=== PATIENT | male | born 1955 | race Caucasian/White ===

== ENCOUNTER → 2023-10-15 12:26 | Outpatient (REF) | payer OTHER, SELFPAY | LOC: HWRAD 12:26 | PROVIDERS: ATTENDING PHYSICIAN Podiatrist Foot & Ankle Surgery; FAMILY PHYSICIAN Family Medicine | DX: M10.9 Gout, unspecified (principal) | CPT/HCPCS: 73630 ==

== ENCOUNTER → 2023-11-06 19:52 | Outpatient (REF) | payer OTHER, SELFPAY | LOC: MRI 3T 19:52 | PROVIDERS: ATTENDING PHYSICIAN Urology; FAMILY PHYSICIAN Family Medicine | DX: R97.20 Elevated prostate specific antigen [PSA] (principal) | CPT/HCPCS: 72197; A9575 ==

== ENCOUNTER 2023-12-08 13:11 | Inpatient (IN) | payer OTHER, SELFPAY ==
[2023-12-08] VITALS (16 sets, daily range): BP systolic 121–160; BP diastolic 67–96; PULSE 70–90; BMI 32.0; BMI 31.8
--- NOTE | 2023-12-08 09:31 | ED.GENMED ---
History of Present Illness
General
Chief Complaint: Abnormal Lab Value
Source: patient
Time Seen by Provider: 12/08/23 09:18
History of Present Illness
History of Present Illness:
68-year-old male presents to the emergency room after receiving a call from his doctor that his hemoglobin was low. Patient had blood work performed by his primary because he was feeling fatigued, short of breath with exertion and had a couple
syncopal episodes after immunizations recently. Patient denies any black or bloody stool. He has not had any other sites of bleeding that he can recall. He does endorse shortness of breath with exertion. No fever or chills.
Past History
Past History
ED Past Medical History: HTN
ED Past Surgical History: Other (hernia repair)
Social History
Tobacco: Non-smoker
Personal:
Living: with family
Employment: Employed
Phy Exam
Physical Exam
Physical Exam:
General: Awake, Alert, Oriented X3. No acute distress.
Vitals: unremarkable
Head: Atraumatic
Eyes: Pupils equal, EOMI, pale sclera
Throat: Airway intact, no exudates
Neck: Trachea midline
Lungs: Clear and equal b/l
Heart: Regular rate, no murmurs
Abd: Soft, Nontender, No pulsatile mass
Rectal: Trace heme positive brown stool
Neuro: Nonfocal
Skin: Warm, dry, no rash, pale complexion
Extremities: pulses equal b/l, no edema
Course
Orders/Labs/Results
Orders:
Orders
12/08/23 09:38
Type+Screen Urgent
B12 [Vitamin B12] Routine
Complete Blood Count/With Diff Urgent
Comprehensive Metabolic Panel Urgent
Ferritin Routine
Folate Routine
Iron Urgent
Comment: ADD ON
Lipase Urgent
Manual Differential Urgent
Total Iron Binding Urgent
Comment: ADD ON
12/08/23 09:56
ABO2 Urgent
BBK Wristband Number:
Associate notified that ABO2 has been ordered: [id number]
Date: 12/08/23
Time: 09:52
Flexible Shaft Winder ID: [id number]
12/08/23 Lunch
NPO
Allow oral meds: Yes
Allow clear liquids: Sips of Clears
12/08/23 10:07
Blood Bank Products [* Blood Bank Products] Urgent
Blood Bank Products: *Packed RBC Leuko(PRBC's)
Quantity: 2
Transfuse Today: Yes
Reason: Anemia
12/08/23 12:28
Pantoprazole [Protonix IV] 80 mg IV NOW STA
12/08/23 12:51
Admit/Transfer Patient As Directed
Co-Sign Provider:
Level of Care: Inpatient admission
Assign to:: Telemetry
Physician / Group: hemant
Diagnosis: anemia
Reason for Telemetry: Arrhythmia
Date to Stop Telemetry: 12/11/23
Time to Stop Telemetry: 11:00
Reason for Hospitalization: anemia
Expected length of stay greater than two midnights?: Yes
ELOS- Estimated Length of Stay in days: 2
I certify the patient meets the requirements for IP care: Yes
PRN Pain Medication Management As Directed
May give lesser potent ordered pain med per pt: Yes
preference::
Protocol:: Medication orders for pain may be administered in a
manner that supports deferring to patient preference
when the pt is:
- Requesting an ordered lesser potent pain medication.
Least to most potent pain medications are defined
as: acetaminophen < NSAID < tramadol < opioids
(morphine, oxycodone, hydromorphone).
- Requesting a lesser dose of the same medication IF
ORDERED.
- Requesting a less intrusive route of administration
if both routes are prescribed by the provider (PO <
IV).
12/08/23 12:52
Code Status As Directed
Resuscitation Status: Full Code
12/08/23 14:46
Alprazolam [Xanax] 0.5 mg PO BIDPRN PRN
12/08/23 14:46
GASTROINTESTINAL CONSULT Routine
Consulting Provider: Xochilt Marte
Was physician already notified: Yes
Activity As Directed
Activity Level: As Tolerated
Orthostatic Vital Signs As Directed
Orthostatic VS Frequency: Now
Comment: then every four hours for twenty-four hours
Pneumatic Compression Sleeves As Directed
Type: Knee high
Vital Signs As Directed
Frequency: Per unit guidelines
DX Deep Vein Thrombosis Video Routine
12/08/23 20:00
Pantoprazole [Protonix IV] 40 mg IV BID
12/08/23 22:00
Calcium 200mg(Ca. Carb. 500mg) [Tums Chewable Tablet] 200 mg PO HS
Cetirizine HCl [Zyrtec] 10 mg PO HS
12/09/23 06:00
Complete Blood Count/With Diff IN AM
Comprehensive Metabolic Panel IN AM
12/09/23 08:00
Allopurinol [Zyloprim] 300 mg PO DAILY
12/11/23 11:00
DC Protocol for Telemetry ONCE
Abnormal Lab Results
12/08/23
09:38
WBC 4.5 L 10^3/uL
(4.8-10.8)
RBC 2.86 L 10^6/uL
(4.70-6.10)
Hgb 5.0 L* g/dL
(13.0-18.0)
Hct 19.2 L* %
(39.0-52.0)
MCV 67.1 L fL
(80.0-94.0)
MCH 17.5 L pg
(27.0-31.0)
MCHC 26.0 L g/dL
(33.0-37.0)
RDW 19.7 H %
(11.5-14.5)
Plt Count 446 H 10^3/uL
(130-400)
Chloride 109 H mmol/L
(98-107)
BUN 24 H mg/dl
(9-20)
Glucose 112 H mg/dl
(70-99)
Iron 22 L ug/dl
(49-181)
TIBC 503 H ug/dl
(261-462)
% Saturation 4 L %
(20-50)
Ferritin 5.0 L ng/ml
(17.9-464.0)
AST 16 L U/L
(17-59)
Albumin 2.6 L g/dl
(3.5-5.0)
Crossmatch IS Only See Detail
12/08/23 09:38
12/08/23 09:38
Vital Signs
Initial and Last Documented VS:
Initial Vital Signs
Temp Pulse Resp BP Pulse Ox
98.1 F 92 16 128/71 98
12/08/23 09:13 12/08/23 09:13 12/08/23 09:13 12/08/23 09:13 12/08/23 09:13
Last Documented Vital Signs
Temp Pulse Resp BP Pulse Ox
97.6 F 73 20 127/74 99
12/08/23 14:04 12/08/23 14:04 12/08/23 14:04 12/08/23 14:04 12/08/23 14:04
MDM/Problems Addressed
Differential Diagnosis Includes:
anemia from bone marrow suppression, slow gi bleed, iron deficiency
MDM/Problems Addressed:
Patient presents with symptomatic anemia. Outpatient hemoglobin was in the fives. Hemoglobin here is 5.0. 2 units of blood ordered. Indices suggest microcytic anemia. Patient is trace heme positive so perhaps he has a slow GI bleed. Given his
history of lymphoma recurrence or other wall pathology possible. Patient will require hospitalization to further delineate the cause of his anemia and also to monitor response to transfusion.
*Pulse Oximetry
Patient hypoxic: no
*Critical Care Note
Total Time (30-74mins, 75-104mins- exclusive of procedures): Not Applicable
ED Attending Note
-
Portions of this chart may have been created with voice recognition software.� Occasional wrong word or��sound alike� substitutions may have occurred due to the inherent limitations of voice recognition software.
Discharge Plan
Departure
Patient Disposition: Admit
Date of Disposition: 12/08/23
Time of Disposition: 12:28
Admit to: Med/Surg
Presentation/result/management discussed w/ accepting MD/DO: Hospitalist
Condition: Fair
Discharge Problem:
Symptomatic anemia
Interventions
Interventions:
*Risk Screen - Suicide Last Done: 12/08/23 09:18
*General Assessment Last Done: 12/08/23 10:28
*Neglect/Abuse Screening Last Done: 12/08/23 09:18
ED- Fall Risk Assessment Last Done: 12/08/23 11:22
*Nursing Disposition Last Done: 12/08/23 14:38
Discharge Date and Time
Discharge Date/Time: 12/08/23 14:39
[2023-12-08 10:05] LABS: Hematocrit 19.2 % (39.0-52.0); Mean Corpuscular Hgb 17.5 pg (27.0-31.0); Mean Corpuscular Volume 67.1 fL (80.0-94.0); Mean Platelet Volume 9.1 fL (7.4-10.4); Platelet Count 446 10^3/uL (130-400); Red Blood Cell Count 2.86 10^6/uL (4.70-6.10); Red Cell Dist. Width 19.7 % (11.5-14.5); White Blood Cell Count 4.5 10^3/uL (4.8-10.8)
[2023-12-08 10:12] LABS: ALT (SGPT) 13 U/L (0-50); AST (SGOT) 16 U/L (17-59); Albumin 2.6 g/dl (3.5-5.0); Alkaline Phosphatase 85 U/L (38-126); Blood Urea Nitrogen 24 mg/dl (9-20); Calcium 9.4 mg/dl (8.4-10.2); Carbon Dioxide 22 mmol/L (22-30); Chloride 109 mmol/L (98-107); Estimated Creatinine Clearance 74 ml/min; Glucose 112 mg/dl (70-99); Lipase 114 U/L (23-300); Potassium 3.9 mmol/L (3.5-5.1); Sodium 144 mmol/L (135-145); Total Bilirubin 0.3 mg/dl (0.2-1.3); Total Protein 6.3 g/dl (6.3-8.2); eGFR > 60.00
[2023-12-08 10:15] LABS: Absolute Neutrophils -Man Diff 2.4 10^3/uL (1.4-6.5); Anisocytosis 1+; Band Neutrophils 0 % (0-3); Eosinophils 3 % (0-6); Hypochromasia 2+; Lymphocytes 36 % (20-51); Monocytes 6 % (2-9); Normal RBC Morphology No; Ovalocytes Slight; Platelets Checked Yes; Polychromasia 1+; Segmented Neutrophils 55 % (42-75)
[2023-12-08 10:16] LABS: Total Cells Counted 100
--- NOTE | 2023-12-08 12:54 | HPS.HSE ---
Family Physician
-
Family Physician: Michael Wright
Chief Complaint
-
sympatomatic anemia
History of Present Illness
68-year-old male past medical history of non-Hodgkin's lymphoma status post chemotherapy now in remission, anemia, elevated PSA, hypertension, gout, anxiety, neuropathy, vasovagal syncope, presenting to the emergency room after receiving a call from
his doctor that his hemoglobin was low. Patient had blood work performed because he was feeling fatigue, shortness of breath with exertion for the past few weeks. He recently got his flu shot and COVID shot a few days ago and had a syncopal
episode afterwards. Last week he also had a syncopal episode when his is getting an injection. He has had vasovagal syncopal episodes in the past.
Denies any blood in the stool or black stool. Denies any urinary bleeding. He denies any chest pain. He denies any abdominal pain. Denies nausea or vomiting.
He last had EGD and colonoscopy 2 years ago for anemia but no source of the bleeding could be found. He received iron infusion at that time.
Denies smoking or alcohol use.
Denies any family history of GI problems.
He is being followed by urology for elevated PSA and there is plan to undergo another prostate biopsy in the near future due to small prostate lesion.
Medical History
Past Medical History
Past Medical History: Reports Other (non-Hodgkin's lymphoma status post chemotherapy now in remission, anemia, elevated PSA, hypertension, gout, anxiety, neuropathy, vasovagal syncope)
Past Surgical History: Reports Other (Inguinal hernia repair, left ankle surgery,)
Social History
Tobacco: Non-smoker
Alcohol: None
Drug: None
Family History
Family History: Not pertinent
Allergies / Home Medications
Allergies reflects when Allergies were last updated in [facility] [employer].
Home Medications with original date entered in [facility]
Allergy/Medication List:
Allergies
Allergy/AdvReac Type Severity Reaction Status Date / Time
Penicillins Allergy Severe Hives Verified 04/14/16 22:57
Sulfa (Sulfonamide Allergy Severe Rash Verified 04/14/16 22:57
Antibiotics)
Home Medications
allopurinol 300 mg tablet 300 mg PO DAILY 12/08/23
alprazolam 0.5 mg tablet (Xanax) 0.5 mg PO BIDPRN PRN anxiety 12/08/23
calcium carbonate (Tums) 200 mg PO HS 12/08/23
cetirizine 10 mg tablet (Zyrtec) 10 mg PO HS 12/08/23
gabapentin 600 mg tablet 600 mg PO BID 12/08/23
lisinopril 40 mg tablet 40 mg PO QPM 12/08/23
lovastatin 10 mg tablet 10 mg PO QPM 12/08/23
naproxen 500 mg tablet (Naprosyn) 500 mg PO BIDPRN PRN gout flares 12/08/23
turmeric 400 mg capsule 1,000 mg PO HS 12/08/23
Review of Systems
-
History Source: Patient
A 12 point ROS was completed and negative except as noted: Yes
Constitutional: Reports No Symptoms
EENT: Reports No Symptoms
Respiratory: Reports No Symptoms
Cardiac: Reports No Symptoms
Abdomen/GI: Reports No Symptoms
: Reports No Symptoms
Musculoskeletal: Reports No Symptoms
Skin: Reports No Symptoms
Neurological: Reports No Symptoms
Endocrine: Reports No Symptoms
Hematologic/Lymphatic: Reports No Symptoms
Psych: Reports No Symptoms
Physical Exam
Vital Signs
Vital Signs
Temp Pulse Resp BP Pulse Ox
97.6 F 76 20 132/90 100
12/08/23 11:29 12/08/23 11:29 12/08/23 11:29 12/08/23 11:29 12/08/23 11:45
Physical Exam
General: Well Developed, Well Nourished and No Apparent Distress
HEENT: NormoCephalic, Moist mucous membranes and Atraumatic
Respiratory: Clear
Cardiac: S1/S2 and Regular Rhythm; No Murmur or Rub
GI: Soft, Non Tender, Non Distended and Normal Bowel Sounds; No Organomegaly
Rectal: Deferred by Provider
Musculoskeletal: No Clubbing, No Cyanosis and No Edema
Skin: No Rash
Neuro: Nonfocal/grossly intact
Laboratory Results
-
12/08/23 09:38
12/08/23 09:38
Laboratory Results
Total Bilirubin 0.3 mg/dl (0.2-1.3) 12/08/23 09:38
AST 16 U/L (17-59) L 12/08/23 09:38
ALT 13 U/L (0-50) 12/08/23 09:38
Alkaline Phosphatase 85 U/L (38-126) 12/08/23 09:38
Lipase 114 U/L (23-300) 12/08/23 09:38
Data Reviewed
-
Lab Data: Labs Reviewed by me
Old Records: Reviewed
Impression/Plan
-
IMPRESSION:
PLAN:
# Acute symptomatic microcytic anemia likely due to occult GI blood loss
#Recent vasovagal syncopal episodes exacerbated by anemia
-Hemoccult showed trace heme positive brown stool
-Hemoglobin of 5
-2 units of blood transfusion
-N.p.o.
-Protonix 40 IV twice daily
-Check iron studies, B12 and folate
-Hold naproxen
-GI consulted
Non-Hodgkin's lymphoma status post chemotherapy
-Now in remission
BPH/prostate lesion
-Being followed by urology, plan for biopsy in near future
Essential hypertension
-Hold lisinopril
Gout
-Continue allopurinol
Anxiety
-Continue Xanax
Hyperlipidemia
-Continue statin
Neuropathy
-continue gabapentin
Full code
DVT prophylaxis�SCDs
N.p.o.
[2023-12-08] MEDS: PROTONIX IV 80 MG IV (14:07)
[2023-12-08 14:19] LABS: Iron 22 ug/dl (49-181)
[2023-12-08 14:28] LABS: Percent Saturation 4 % (20-50); Total Iron Binding Capacity 503 ug/dl (261-462)
--- NOTE | 2023-12-08 15:20 | CON.GI ---
Addendum entered and electronically signed by Xochilt Marte DO 12/08/23 16:38:
Patient seen and examined independently of the [employer]. I agree with her note with my additions below
I discussed with the patient and his who is a nurse at the bedside who gives a lot of his history. He is a 60-year-old male with history of non-Hodgkin's lymphoma in remission s/p chemotherapy in 2018.
2 years ago patient had iron deficiency anemia and underwent an endoscopy, colonoscopy and capsule endoscopy with Dr. Barba. states these were all subjectively normal except he had a very large hiatal hernia and some small polyps. Otherwise
states the capsule was somewhat inconclusive because of a lot of debris.
He does have significant reflux but is on an [id number] PPI. He states on rare occasion he feels like liquids do not go down very well. He denies any nausea or vomiting. No chronic abdominal pain diarrhea constipation or overt bleeding.
He takes naproxen for gout on rare occasion but no anticoagulation. Does drink on the weekends more on the heavy side. He is a non-smoker with no pulmonary disease.
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 He has only received 1 IV iron. He has never received a blood transfusion.
On Friday he went to his PCP for his biannual visit and had blood work including a CBC which showed a hemoglobin of 5 that was microcytic.
He normally does not come to [place] but came here because of the urgency of his PCP
# Symptomatic iron deficiency anemia with shortness of breath/dyspnea on exertion and fatigue
-- Hemoglobin 5 with a ferritin of 5 with last known hemoglobin 12 according to 's portal
-- Had iron deficiency anemia with a GI workup 2 years ago at [facility]. We are obtaining these results. According to the and the patient only findings were very large hiatal hernia which Dr. Barba thought the iron deficiency was secondary to
the hiatal hernia. The patient did want to proceed with surgical repair but after their conversation with GI they decided not to.
-This will be his first transfusion and just received his second unit of blood.
-- We will proceed with EGD tomorrow and hold off on colonoscopy since it was just done within 2 years and he has a significant hiatal hernia which could be the cause
--Clears for dinner, n.p.o. after midnight, PPI twice daily, hold NSAIDs, IV iron
-- Patient has an appointment with his continuous wave operator within the next 2 weeks and can be set up for IV iron outpatient
-- Pending results, patient is not opposed to having his hiatal hernia repaired
He will follow-up with Dr. Barba outpatient--
Original Note:
Consultation
-
Date/Time Consultation Requested: 12/08/23- 1400
Date/Time Consultation Performed: 12/08/23 1520
Requesting Provider: James Awad MD
Performing Provider: ADRIANO Nielsen, Xochilt Marte DO
Reason for Consultation: anemia
Medical History
Chief Complaint / HPI
Chief Complaint: abnormal labs syncope
History of Present Illness:
Pt is a 68yo with hx history of non-Hodgkin's lymphoma status post chemotherapy in 2018 now in remission, anemia with prior iron infusions, elevated PSA, hypertension, gout, anxiety, neuropathy, vasovagal syncope with admission for low hbg in ER at
5noted with trace heme + stools. Iron studies c/w iron deficiency and B12 deficiency. In reviewing with patient he had work up with Dr. Barba about 2 years ago with EGD/colonoscopy and capsule. He did recall polyps but no other findings. He did
have some iron infusion with his continuous wave operator after that time for low iron. He now presents with abnormal labs with hbg 5 after PCP visit. Last hbg about 1 year ago noted 13. He does admit to shortness of breath worsening over several weeks and
episode of syncope last week while at PCP office. He was noted trace heme + in ER but denies any visible blood. He admits to occasional GERD with Tums use. He denies dysphagia,abdominal pain, diarrhea or constipation. No anticoagulation use but
does take Naproxen for gout and recent colchicine course several weeks ago. + ETOH use on weekends with several beers and shots.
Past Medical History
Past Medical History: Cancer (non hodgkin's lymphoma s/p chemo in remission, anemia, elevated PSA), HTN and Other (gout, anxiety, neuropathy, vasovagel syncope, colon polyps)
Past Surgical History: Other (inguinal hernia repair, left ankle surgery )
Social History
Tobacco: Non-Smoker
Alcohol: Occasional (Weekends- several beers and shots )
Drug: None
Personal:
Living: With Family
Employment: Retired
Family History
Family History: Reviewed & Not Pertinent
Allergies / Home Medications
Allergy/AdvReac Type Severity Reaction Status Date / Time
Penicillins Allergy Severe Hives Verified 04/14/16 22:57
Sulfa (Sulfonamide Allergy Severe Rash Verified 04/14/16 22:57
Antibiotics)
�Medication �Instructions �Recorded
allopurinol 300 mg tablet 300 mg PO DAILY 12/08/23
alprazolam 0.5 mg tablet (Xanax) 0.5 mg PO BIDPRN PRN anxiety 12/08/23
calcium carbonate (Tums) 200 mg PO HS 12/08/23
cetirizine 10 mg tablet (Zyrtec) 10 mg PO HS 12/08/23
gabapentin 600 mg tablet 600 mg PO BID 12/08/23
lisinopril 40 mg tablet 40 mg PO QPM 12/08/23
lovastatin 10 mg tablet 10 mg PO QPM 12/08/23
naproxen 500 mg tablet (Naprosyn) 500 mg PO BIDPRN PRN gout flares 12/08/23
turmeric 400 mg capsule 1,000 mg PO HS 12/08/23
Review of Systems
-
History Source: Patient and Family
Constitutional: Reports No Symptoms
EENT: Reports No Symptoms
Respiratory: Reports Trouble Breathing
Cardiac: Reports Syncope (last week )
Abdomen/GI: Reports Other (occasional GERD)
: Reports No Symptoms
Musculoskeletal: Reports Other
Neurological: Reports Dizzy and Weakness
Endocrine: Reports No Symptoms
Hematologic/Lymphatic: Reports No Symptoms
Vital Signs
Temp Pulse Resp BP Pulse Ox
97.5 F 73 18 127/74 100
12/08/23 15:07 12/08/23 14:04 12/08/23 15:07 12/08/23 14:04 12/08/23 15:07
Physical Exam
Exam
General: Well Developed, Well Nourished and Other (pale appearing )
HEENT: Normocephalic and Anicteric
Respiratory: Clear
Cardiac: Regular Rhythm
GI: Soft, Non Tender and Non Distended
Musculoskeletal: No Clubbing and No Cyanosis
Skin: Warm and Dry
Neuro: Awake, Alert and AO x 3
Psych: Calm
Results
WBC 4.5 10^3/uL (4.8-10.8) L 12/08/23 09:38
Hgb 5.0 g/dL (13.0-18.0) L* 12/08/23 09:38
Hct 19.2 % (39.0-52.0) L* 12/08/23 09:38
MCV 67.1 fL (80.0-94.0) L 12/08/23 09:38
Plt Count 446 10^3/uL (130-400) H 12/08/23 09:38
Sodium 144 mmol/L (135-145) 12/08/23 09:38
Potassium 3.9 mmol/L (3.5-5.1) 12/08/23 09:38
Chloride 109 mmol/L (98-107) H 12/08/23 09:38
Carbon Dioxide 22 mmol/L (22-30) 12/08/23 09:38
BUN 24 mg/dl (9-20) H 12/08/23 09:38
Creatinine 1.1 mg/dL (0.7-1.3) 12/08/23 09:38
Calcium 9.4 mg/dl (8.4-10.2) 12/08/23 09:38
Total Bilirubin 0.3 mg/dl (0.2-1.3) 12/08/23 09:38
AST 16 U/L (17-59) L 12/08/23 09:38
ALT 13 U/L (0-50) 12/08/23 09:38
Alkaline Phosphatase 85 U/L (38-126) 12/08/23 09:38
Lipase 114 U/L (23-300) 12/08/23 09:38
Diagnostic Image Results:
Prior GI Procedures:
EGD: [address] Barba recalls as normal
Colonoscopy: 2 years ago recall polyps
capsule 2 years ago recalls as normal
Assessment / Plan
-
Pt is a 68yo with hx history of non-Hodgkin's lymphoma status post chemotherapy now in remission, anemia with prior iron infusion, elevated PSA, hypertension, gout, anxiety, neuropathy, vasovagal syncope with admission for low hbg in ER at 5 noted
with trace heme + stools. Iron studies c/w iron deficiency and also B12 deficiency. Per family last hbg 13 about 1 year ago. + ETOH use of weekends. + NSAID use for gout.
-symptomatic iron deficiency anemia with weakness, shortness of breath and syncope
-B12 deficiency
-hx prior ANGELIC with GI work up 2 years ago recall polyps did not recall any other findings
-non hodgkin's lymphoma in remission--
-gout with NSAID use
-ETOH use
other med problems:
-elevated PSA
-HTN
-anxiety
-neuropathy
PLAN:
Etiology of ANGELIC related to slow blood loss- PUD with hx NSAID use, ectasia, mass vs other
agree with transfusion s/p 1 unit and getting another unit now
add iron infusion to start tomorrow
cont trend hbg
hospitalist to add B12 supplementation
plan for EGD/colon in AM if neg then repeat capsule
cont PPI
NSAID/ ETOH avoidance
will try to obtain prior work up [address] Barba
Pt due follow up in about 2 weeks with OP hematology
updated
-
-
Thank you for consultation and allowing me to participate in the patient's care. Please call the environmental sampler GI physician during the after hours with any questions or concerns.
[2023-12-08 15:26] LABS: Folate 13.4 ng/ml (2.76-20); Vitamin B12 234 pg/ml (239-931)
[2023-12-08] MEDS: LIPITOR 10 MG PO (17:26)
--- NOTE | 2023-12-08 19:30 | PTCARENOTE ---
pt received 1 unit PRBCs that started at 1618. blood was stopped at 1924. VSS, pt AAOx3. plan of care ongoing
[2023-12-08] MEDS: NEURONTIN 600 MG PO (21:06)
[2023-12-08] MEDS: NSS (PRESERVATIVE FREE) 10 ML IV (21:07)
[2023-12-08] MEDS: PROTONIX IV 40 MG IV (21:07)
[2023-12-08] MEDS: ZYRTEC 10 MG PO (21:08)
[2023-12-08] MEDS: TUMS CHEWABLE TABLET 200 MG PO (21:08)
[2023-12-08] MEDS: XANAX 0.5 MG PO (22:02)
[2023-12-09] VITALS (10 sets, daily range): BP systolic 126–159; BP diastolic 57–93; PULSE 65–85
--- NOTE | 2023-12-09 03:36 | W.PN.UPDATE ---
Update Note
Progress Note Update
RN reports that during night Tele monitor showed HR to 150 for a few seconds. But this did wake up pt and he felt a bit SOB during this episode. HR back to 70s within a few seconds.
[2023-12-09 05:48] LABS: % Basophils 3.1 % (0-2); % Immature Granulocytes 0.4 % (0-0.5); % Lymphocytes 36.4 % (20.5-51.1); % Monocytes 9.7 % (1.7-9.3); % Neutrophils 43.4 % (42.2-75.2); Absolute Basophils 0.2 10^3/uL (0-0.2); Absolute Eosinophils 0.4 10^3/uL (0-0.7); Absolute Monocytes 0.5 10^3/uL (0.1-0.6); Absolute Neutrophils 2.4 10^3/uL (1.4-6.5); Hematocrit 23.1 % (39.0-52.0); Hemoglobin 6.8 g/dL (13.0-18.0); Mean Corp Hgb Conc. 29.4 g/dL (33.0-37.0); Mean Corpuscular Volume 71.3 fL (80.0-94.0); Mean Platelet Volume 8.9 fL (7.4-10.4); Nucleated Red Blood Cells % 0.5 % (-); Platelet Count 384 10^3/uL (130-400); Red Blood Cell Count 3.24 10^6/uL (4.70-6.10); Red Cell Dist. Width 22.6 % (11.5-14.5); White Blood Cell Count 5.6 10^3/uL (4.8-10.8)
[2023-12-09 05:55] LABS: INR 1.15; PT 14.5 Sec (11.4-14.6)
[2023-12-09 06:09] LABS: ALT (SGPT) 11 U/L (0-50); AST (SGOT) 16 U/L (17-59); Albumin 3.5 g/dl (3.5-5.0); Alkaline Phosphatase 80 U/L (38-126); Blood Urea Nitrogen 17 mg/dl (9-20); Carbon Dioxide 23 mmol/L (22-30); Chloride 108 mmol/L (98-107); Estimated Creatinine Clearance 74 ml/min; Glucose 90 mg/dl (70-99); Magnesium 1.9 mg/dl (1.6-2.3); Potassium 4.2 mmol/L (3.5-5.1); Sodium 142 mmol/L (135-145); Total Protein 5.8 g/dl (6.3-8.2); eGFR > 60.00
[2023-12-09] MEDS: ZYLOPRIM 300 MG PO (11:32)
[2023-12-09] MEDS: PROTONIX IV 40 MG IV (11:32)
[2023-12-09] MEDS: NSS (PRESERVATIVE FREE) 10 ML IV (11:32)
[2023-12-09] MEDS: NEURONTIN 600 MG PO (11:32)
--- NOTE | 2023-12-09 12:00 | W.PN.UPDATE ---
Update Note
Progress Note Update
d/w pt and post procedure will consider cscope
clear liquid for now
will update hospitalist
--- NOTE | 2023-12-09 12:01 | W.PN.HOSP.TC ---
Today's Communication/Plan
-
Await patient decision for C-scope
Await repeat H&H
Continue with iron and B12 supplementation
Assessment / Plan
Assessment / Plan
General: Well Developed, Well Nourished and No Apparent Distress
HEENT: NormoCephalic, Moist mucous membranes and Atraumatic
Respiratory: Clear
Cardiac: S1/S2 and Regular Rhythm; No Murmur or Rub
GI: Soft, Non Tender, Non Distended and Normal Bowel Sounds; No Organomegaly
Rectal: Deferred by Provider
Musculoskeletal: No Clubbing, No Cyanosis and No Edema
Skin: No Rash
Neuro: Nonfocal/grossly intact
# Acute symptomatic microcytic anemia likely due to occult GI blood loss
#Recent vasovagal syncopal episodes exacerbated by anemia
-Hemoccult showed trace heme positive brown stool
-Hemoglobin of 5 on admission. repeat Hgb pending
-3 units of blood transfusion so far
-Protonix 40 IV twice daily and switch to p.o. on discharge.
-Check iron studies, B12 and folate
-S/P EGD with unremarkable. Large paraesophageal hernia noted.
-GI offered colonoscopy and patient considering either here as outpatient.
-Hold naproxen. Continue with IV iron. Also started B12 supplementation. Diet per GI
-GI consulted
Non-Hodgkin's lymphoma status post chemotherapy
-Now in remission
BPH/prostate lesion
-Being followed by urology, plan for biopsy in near future
Essential hypertension
-Hold lisinopril
Gout
-Continue allopurinol
Anxiety
-Continue Xanax
Hyperlipidemia
-Continue statin
Neuropathy
-continue gabapentin
Full code
DVT prophylaxis�SCDs
Anticipated Discharge: Within 24 hours
Subjective/Interval History
-
Date of Service: December 09, 2023
Receiving blood
deneis abd pain
Objective Data
-
Labs:
Laboratory Results
12/09/23 12/09/23
05:10 12:00
WBC 5.6
Hgb 6.8 L* D Pending
Hct 23.1 L Pending
Plt Count 384
PT 14.5
INR 1.15
Sodium 142
Potassium 4.2
Chloride 108 H
Carbon Dioxide 23
BUN 17
Creatinine 1.1
Glucose 90
Calcium 9.0
Total Bilirubin 1.0
AST 16 L
ALT 11
Alkaline Phosphatase 80
Vital Signs:
Vital Signs
Temp Pulse Resp BP Pulse Ox
97.7 F 65 18 147/83 98
12/09/23 11:47 12/09/23 11:47 12/09/23 11:47 12/09/23 11:47 12/09/23 11:47
I&O
12/08/23 12/09/23 12/10/23
06:59 06:59 06:59
Intake Total 1760 / 1760 250 / 250
Balance 1760 / 1760 250 / 250
Data Reviewed
-
Total Time Spent with Patient (in minutes): 51
[2023-12-09 12:50] LABS: Hematocrit 27.1 % (39.0-52.0)
--- NOTE | 2023-12-09 14:14 | W.DCSUMMARY ---
Discharge Summary
Discharge Data
Date of Admission: 12/08/23
Date of Discharge: 12/09/23
-
Pending Results: Yes
Additional Pending Results:
EGD biopsy results with gastroenterology.
Hospital Course
68-year-old male past medical history of non-Hodgkin lymphoma status postchemotherapy, BPH, prostate lesion, hypertension, gout, anxiety, hyperlipidemia, neuropathy who was presented with symptomatic anemia. Patient had recent outpatient blood work
was found to hemoglobin of 5. Patient received 2 units of blood transfusion on admission. GI was consulted. Patient was started on PPI infusion. Patient was also found to have a low iron stores and B12. Received IV iron and discharged on p.o.
iron and B12 supplementation. Patient underwent endoscopy which showed EGD Erythematous mucosa in the stomach. Biopsied. Gastric erosion with no bleeding and no stigmata of recent bleeding. Biopsied. Large paraesophageal hernia was noted. Patient
hemoglobin improved to 8 status post 3 units of PRBC total. Patient stated he will follow-up for further workup including colonoscopy with his outpatient gastroenterology and did not want to undergo colonoscopy over here. Discussed with
gastroenterology okay for patient to be discharged as no further workup is desired by patient. PPI transition to p.o. twice daily.
Discharge Plan
-
Patient Disposition: Home (Routine Discharge)
Discharge Diagnosis/Procedures: Symptomatic anemia status post blood transfusion
S/P Endoscopy
Paraoesophageal hernia
Condition: Fair
Diet: As tolerated
Activity: With assistance and As tolerated
Blood Work: cbc in 3-5 days via primary doctor.
Activity Restrictions/Additional Instructions:
Recommend gi follow up with Dr. Barba for further evaluation.
Referrals:
Chasidy Hernandes MD [Active] - (f/u EGD biopsy results with gastroenterology. call office for results. )
Michael Wright MD [Family Provider] - in less than 1 week
Prescriptions:
New
cyanocobalamin (vitamin B-12) 1,000 mcg Tablet
1,000 mcg PO DAILY 30 Days Qty: 30 0RF
omeprazole 40 mg capsule,delayed release(DR/EC)
40 mg PO BID Qty: 60 0RF
ferrous sulfate 325 mg (65 mg iron) tablet
325 mg PO DAILY Qty: 30 0RF
Continued
gabapentin 600 mg Tablet
600 mg PO BID
cetirizine [Zyrtec] 10 mg Tablet
10 mg PO HS
lovastatin 10 mg Tablet
10 mg PO QPM
alprazolam [Xanax] 0.5 mg Tablet
0.5 mg PO BIDPRN PRN (Reason: anxiety)
calcium carbonate [Tums] 200 mg calcium (500 mg) Tablet,Chewable
200 mg PO HS
allopurinol 300 mg Tablet
300 mg PO DAILY
lisinopril 40 mg Tablet
40 mg PO QPM
turmeric 400 mg Capsule
1,000 mg PO HS
Discontinued
naproxen [Naprosyn] 500 mg Tablet
500 mg PO BIDPRN PRN (Reason: gout flares)
Discharge Orders:
Discharge Patient (As Directed); Ordered 12/09/23
Ordered By: Bravo Rothman
Discharge Date and Time
Discharge Date/Time: 12/09/23 16:11
Print Language: OCCITAN
[2023-12-09] MEDS: FERRLECIT 110 MG IV (14:24)
--- NOTE | 2023-12-09 16:25 | CM ---
infrastructure manager reviewed patient's chart and met with patient and patient lives with spouse who is a nurse in a 2 story home, patient is independent with adl's and ambulation, no dme, patient drives.
PCP: Dr. Wright
Pharmacy [facility].
Plan; Home when stable, no needs, supervisor case loading offered information on AD, however patient has AD just needs it witnessed and notarized.
== END 2023-12-09 16:11 | disposition home or self-care (01) | DRG 812 ==
LOC: 4 EAST ACU 13:11
PROVIDERS: Internal Medicine Gastroenterology; Nurse Practitioner Adult Health; ADMITTING PHYSICIAN Hospitalist; ATTENDING PHYSICIAN Hospitalist; CONSULT PHYSICIAN Internal Medicine; EMERGENCY PHYSICIAN Emergency Medicine; FAMILY PHYSICIAN Family Medicine
PROC: 30233N1 Transfusion of Nonautologous Red Blood Cells into Peripheral Vein, Percutaneous Approach (ICD-10-PCS; 2023-12-08)
PROC: 0DB98ZX Excision of Duodenum, Via Natural or Artificial Opening Endoscopic, Diagnostic (ICD-10-PCS; 2023-12-09)
PROC: 0DB48ZX Excision of Esophagogastric Junction, Via Natural or Artificial Opening Endoscopic, Diagnostic (ICD-10-PCS; 2023-12-09)
PROC: 0DB68ZX Excision of Stomach, Via Natural or Artificial Opening Endoscopic, Diagnostic (ICD-10-PCS; 2023-12-09)
DX: D50.0 Iron deficiency anemia secondary to blood loss (chronic) (principal); C85.9A Non-Hodgkin lymphoma, unspecified, in remission; K44.9 Diaphragmatic hernia without obstruction or gangrene; K25.9 Gastric ulcer, unspecified as acute or chronic, without hemorrhage or perforation; K31.7 Polyp of stomach and duodenum; I10 Essential (primary) hypertension; M10.9 Gout, unspecified; F41.9 Anxiety disorder, unspecified; E78.5 Hyperlipidemia, unspecified
CPT/HCPCS: 88305; 36430; 80053; 82607; 82728; 82746; 83540; 83550; 83690; 83735; 85014; 85018; 85025; 85610; 86850; 86900; 86901; 86920; 88342; 88360; 99285; J2916; P9016

== ENCOUNTER → 2023-12-17 15:53 | Outpatient (REF) | payer OTHER, SELFPAY | LOC: RAD 15:53 | PROVIDERS: ATTENDING PHYSICIAN Internal Medicine Gastroenterology; FAMILY PHYSICIAN Family Medicine | DX: C15.5 Malignant neoplasm of lower third of esophagus (principal) | CPT/HCPCS: 71260; 74177; Q9967 ==

== ENCOUNTER → 2024-01-16 06:29 | Day surgery (SDC) | payer OTHER, SELFPAY | LOC: GI 06:29 | PROVIDERS: ATTENDING PHYSICIAN Internal Medicine Gastroenterology | DX: D50.0 Iron deficiency anemia secondary to blood loss (chronic) (principal); K57.30 Diverticulosis of large intestine without perforation or abscess without bleeding; K64.0 First degree hemorrhoids; D12.0 Benign neoplasm of cecum; D12.3 Benign neoplasm of transverse colon; D12.5 Benign neoplasm of sigmoid colon | CPT/HCPCS: 45385; 45381; 45380; 88305 ==

== ENCOUNTER → 2024-05-04 06:39 | Outpatient (REF) | payer OTHER, SELFPAY | LOC: RCS 06:39 | PROVIDERS: ATTENDING PHYSICIAN Registered Nurse; FAMILY PHYSICIAN Family Medicine; REFERRING PHYSICIAN Student in an Organized Health Care Education/Training Program | DX: R06.00 Dyspnea, unspecified (principal) | CPT/HCPCS: 78452; 93017; A9500 ==

== ENCOUNTER 2024-10-26 06:17 | Day surgery (SDC) | payer OTHER, SELFPAY | END 2024-10-26 08:55 | disposition home or self-care (01) | LOC: GI 06:17 | PROVIDERS: ATTENDING PHYSICIAN Internal Medicine Gastroenterology | DX: Z12.11 Encounter for screening for malignant neoplasm of colon (principal); K57.30 Diverticulosis of large intestine without perforation or abscess without bleeding; K64.9 Unspecified hemorrhoids; D12.0 Benign neoplasm of cecum; D12.3 Benign neoplasm of transverse colon; Z86.0100 Personal history of colon polyps, unspecified | CPT/HCPCS: 45385; 45380; 88305 ==

== ENCOUNTER → 2025-01-26 22:00 | Outpatient (REF) | payer OTHER, SELFPAY | LOC: DHSLP 22:00 | PROVIDERS: ATTENDING PHYSICIAN Internal Medicine Critical Care Medicine; FAMILY PHYSICIAN Family Medicine | DX: G47.33 Obstructive sleep apnea (adult) (pediatric) (principal) | CPT/HCPCS: 95806 ==